=== PATIENT | female | born 1970 | race Caucasian/White ===

== ENCOUNTER 2022-10-06 00:05 | Emergency (ER) | payer BC, SELFPAY ==
[2022-10-06] VITALS (8 sets, daily range): BP systolic 134–196; BP diastolic 86–115; PULSE 80–98; RESP 16–18; TEMP 36.6–37.1; O2SAT 97–100; BMI 23.9
--- NOTE | 2022-10-06 00:28 | CT_ITS ---
INDICATION: flank pain -- bilat nephrostomy tube, leaking on right, tube elías EXAMINATION: CT ABDOMEN AND PELVIS WITHOUT CONTRAST - CT Abdomen And Pelvis W/O Contrast Injection TECHNIQUE: Helically acquired images were obtained of the abdomen and pelvis without oral or IV contrast. A radiation dose optimization technique was used for this scan. IV Contrast dosage and agent: None. Oral contrast: None. RADIATION DOSAGE (If Supplied By Facility): CTDIvol = ( 6.37 ) mGy, DLP = ( 312.15 ) mGycm COMPARISON: FINDINGS: LOWER CHEST: Lung bases are clear. No cardiomegaly or pericardial effusion. LIVER: Homogeneous. No focal mass. GALLBLADDER AND BILIARY TREE: No calcified gallstones. No gallbladder distension or wall edema. No intra- or extrahepatic biliary ductal dilation. PANCREAS: No focal cystic or solid mass. SPLEEN: Normal size without focal cystic or solid mass. ADRENAL GLANDS: No nodules. KIDNEYS AND URETERS: There is severe right hydronephrosis and hydroureter. Multiple stones are seen in the right kidney and the right ureter, the largest measures 9 mm there is a nephrostomy tube within a posterior calyx in the right kidney. Multiple stones are seen in the left kidney the largest measures 20 mm. There is a left nephrostomy tube in good position. There is no hydronephrosis noted on the left side.. PERITONEUM: No ascites or free air. No other fluid collection. BOWEL: No evidence of acute appendicitis. No stomach or bowel distension. No focal inflammatory change. LYMPH NODES: No enlarged mesenteric or retroperitoneal lymph nodes. VESSELS: Aorta is non-dilated. URINARY BLADDER: Unremarkable. REPRODUCTIVE ORGANS: No pelvic masses. ABDOMINAL WALL: No discrete abdominal or pelvic wall hernia. BONES: No lytic or blastic abnormality. CT/Abdomen/Pelvis without Cont IMPRESSION: There is severe right hydronephrosis and hydroureter. Multiple stones are seen in the right kidney the largest measures 9 mm there is a nephrostomy tube within a posterior calyx in the right kidney. Multiple stones are seen in the left kidney the largest measures 20 mm. There is a left nephrostomy tube in good position. There is no hydronephrosis noted on the left side. Electronically Signed: Timbo Kate MD at 1:35 EDT ,
--- NOTE | 2022-10-06 00:37 | EDS_ITS ---
HPI History of Present Illness Chief Complaint: Complaint Informant: patient Narrative Narrative: Presents with increasing leakage from right nephrostomy tube today. Bilateral nephrostomy tubes placed 6 weeks ago at [facility] followed by Dr. Horne. Patient reports history of cervical cancer 2012 with radiation therapy. History of kidney stones bilaterally. 6 weeks ago admitted to [facility] bilateral hydronephrosis with kidney stones. She had lithotripsy with no improvement, from her history reports had cystoscopy finding left-sided stenosis, right side was coiled, initial cystoscopy back in February. She is found to have severe hydro bilaterally 6 weeks ago, therefore nephrostomy tubes were placed by interventional radiology up at [facility]. She states the right side stopped draining 12 hours ago she had severe pain in the right side yesterday. Symptoms resolved today currently she is starting to urinate. No fevers or chills. Pain has subsided. Denies any allergies. Prior similar symptoms: No PFSH PFSH Medical History Cervical cancer Depression Kidney stones Nephrostomy tube failure with subsequent urine leak Smoker Home Medications NK 10/06/22 [History Last Taken Unknown] Allergy/AdvReac Type Severity Reaction Status Date / Time No Known Allergies Allergy Verified 10/06/22 00:08 Social History Smoking Status: Current some day smoker tobacco type: cigarettes ROS ROS ED Constitutional Constitutional ED: Denies chills, fever(s) or sweats Eyes Eyes: Denies change in vision ENT ENT ED: Denies dysphagia or sore throat Cardiovascular Cardiovascular: Denies chest pain, leg edema, palpitations or racing heartbeat Respiratory/Chest Respiratory/Chest: Denies cough, dyspnea or dyspnea on exertion Gastrointestinal Gastrointestinal: Denies abdominal pain, diarrhea, nausea or vomiting Genitourinary Genitourinary ED: Denies dysuria, hematuria or urinary frequency Musculoskeletal Musculoskeletal: Reports other Details: Transient right-sided flank pain, leaking nephrostomy tube on the right, no erythema around nephrostomy tubes bilaterally. No CVA tenderness. ; Denies back pain, extremity pain or neck pain Integumentary Denies rash or wounds Neurologic Neurologic: Denies headache(s), paresthesias or weakness EXAM Physical Exam Const Vital Signs: 10/06/22 00:06 10/06/22 01:08 10/06/22 02:07 Temperature 97.8 F 98.3 F 98.7 F Temperature Source Temporal Oral Oral Pulse Rate 98 87 80 Respiratory Rate 18 16 16 Blood Pressure 196/115 H 148/106 H 146/101 H Blood Pressure Mean 142 120 116 Pulse Ox 100 98 99 Oxygen Delivery Method Room Air Room Air Room Air 10/06/22 03:00 Temperature 98.7 F Temperature Source Oral Pulse Rate 88 Respiratory Rate 16 Blood Pressure 151/99 H Blood Pressure Mean 116 Pulse Ox 100 Oxygen Delivery Method Room Air MDM MDM MDM Narrative Medical decision making narrative: Interventions / MDM: Differential diagnosis: Displaced right nephrostomy tube, kidney stone, hydronephrosis, UTI Diagnosis considered but do not suspect: N/A My EKG interpretation: N/A Imaging independently reviewed and interpreted by myself: CT abdomen pelvis: Displaced nephrostomy tube right side currently right cortex with severe hydronephrosis, nephrolithiasis noted bilaterally. External documents reviewed: N/A Test considered but not ordered:N/A ED course: Nontoxic currently walking around the room. She is able to provide urine to be sent down culture sent from this. Labs showed white count 10.7. Patient's creatinine is 1.6 there is no old in the system to compare to. She reported there is previous slight renal insufficiency however was told likely from her obstructive process. CT scan confirms dislodged nephrostomy tube with severe hydronephrosis. Patient's urine noted UTI concerns leukocytes with greater than 100 WBCs and greater than 100 RBCs and 4+ bacteria. Culture is pending, also obtain urine culture from her left nephrostomy prior to antibiotics being started. IV Rocephin is started. With severe hydronephrosis complicated UTI with renal insufficiency do feel patient benefit from hospitalization and replacement of her nephrostomy tube on the right side. We do not have interventional radiology available on the weekends as it is Friday night. Did have my antitank assault gunner reach out to [facility] as it was placed there and her urologist is there, the report is that they also do not have interventional radiology available on the weekends. Therefore will look for tertiary centers to transfer. 0200: I spoke with transfer line at [facility] updated gave them information the patient with limitations from interventional radiology she will likely need replacement with IR. 0302: Received callback from transfer line, patient accepted to hospitalist service to Dr. Gaming. Re-evaluation: stable Disposition discussed with patient/family/significant other: Patient Case discussed with consulting clinician: Lesly mcgarry transfer line Lab Data Attestation: I reviewed the patient's lab results. Labs: Laboratory Results - last 24 hr 10/06/22 10/06/22 10/06/22 00:35 00:35 00:40 WBC 10.7 RBC 4.78 Hgb 13.6 Hct 44.2 MCV 92.5 MCH 28.5 MCHC 30.8 L RDW Std Deviation 49.9 H RDW Coeff of Veronica 14.6 Plt Count 228 MPV 10.1 Immature Gran % (Auto) 0.400 Neut % (Auto) 86.2 H Lymph % (Auto) 7.1 L Cooper % (Auto) 5.1 Eos % (Auto) 0.8 Baso % (Auto) 0.4 Absolute Neuts (auto) 9.3 H Absolute Lymphs (auto) 0.76 L Nucleated RBC % 0 Sodium 136 Potassium 3.4 L Chloride 106 Carbon Dioxide 25.0 Anion Gap 5 BUN 34 H Creatinine 1.61 H Estim Creat Clear Calc 40.65 Est GFR (MDRD) Af Amer 44 L Est GFR (MDRD) Non-Af 36 L BUN/Creatinine Ratio 21.1 H Glucose 171 H Calcium 9.4 Urine Color Yellow Urine Clarity Cloudy Urine pH 8.0 Ur Specific [place] 1.010 Urine Protein 100 H Urine Glucose (UA) Normal Urine Ketones Negative Urine Occult Blood 250 H Urine Nitrite Negative Urine Bilirubin Negative Urine Urobilinogen 1 H Ur Leukocyte Esterase 500 H Urine RBC > 100 SEEN Urine WBC >100 SEEN Ur Squamous Epith Cells 0 SEEN Urine Bacteria 4+ Urine Mucus 0 SEEN Radiography Diagnostic Testing: Clinical Impression(s) from Imaging Studies Abdomen/Pelvis CT 10/06/22 00:28 IMPRESSION: There is severe right hydronephrosis and hydroureter. Multiple stones are seen in the right kidney the largest measures 9 mm there is a nephrostomy tube within a posterior calyx in the right kidney. Multiple stones are seen in the left kidney the largest measures 20 mm. There is a left nephrostomy tube in good position. There is no hydronephrosis noted on the left side. Electronically Signed: Timbo Kate MD at 1:35 EDT , Discharge Plan Triage Chief Complaint: Complaint ED Provider: Hira Maciel Dx/Rx/DC Orders Clinical Impression: Hydronephrosis of right kidney, Nephrostomy tube displaced, Complicated urinary tract infection, Renal insufficiency Prescriptions: No Action NK Primary Care Provider: Bárbara Young Referrals: Bárbara Young, PA [Primary Care Provider] - Disposition Disposition: DC/Tx to Another Type of HCF
[2022-10-06 00:42] LABS: Mucous, Urine 0 SEEN /hpf (<or=2+); Squamous Epithelial Cells - UA 0 SEEN /hpf (5-10)
[2022-10-06 00:42] LABS: Absolute Lymphocyte Count 0.76 X10^3/uL (0.83-4.51); Absolute Neutrophil Count 9.3 X10^3/uL (2.0-7.7); Basophil# 0.04 X10^3/uL; Basophil% 0.4 % (0-1); Eosinophil# 0.09 X10^3/uL; Eosinophils% 0.8 % (0-5); Hematocrit 44.2 % (37-47); Hemoglobin 13.6 g/dL (12.0-15.0); Lymphocyte # 0.76 X10^3/ul (0.83-4.51); Lymphocyte % 7.1 % (19-41); Mean Corp Hgb Conc 30.8 g/dL (32-36); Mean Corpuscular Hgb 28.5 pg (27.0-32.0); Mean Corpuscular Volume 92.5 fL (81-99); Mean Platelet Vol. 10.1 fl (6.2-12.0); Monocyte# 0.55 X10^3/uL; Monocyte% 5.1 % (0-10); NRBC Flagged by Analyzer 0 % (0-5); Neutrophil # 9.26 X10^3/uL (2.7-7.7); Neutrophil % 86.2 % (47-70); Platelet Count 228 K/mm3 (150-450); RBC Distribution Width CV 14.6 % (11.6-14.6); RBC Distribution Width SD 49.9 fl (35.1-43.9); Red Blood Count 4.78 M/mm3 (4.2-5.4); White Blood Count 10.7 K/mm3 (4.4-11.0)
[2022-10-06 00:44] LABS: Color, Urine Yellow (Yellow); Glucose, Dipstick Normal (Normal); Ketone-Dipstick Negative (Negative); Leukocyte Esterase-Dipstick 500 /ul (Negative); Nitrite-Dipstick Negative (Negative); Occult Blood-Urine 250 /ul (Negative); Protein-Dipstick 100 mg/dl (Negative); Urine Bilirubin Dipstick Negative (Negative); Urine Clarity Cloudy (Clear); Urine Urobilinogen 1 mg/dl (Normal)
[2022-10-06 00:49] LABS: Bacteria 4+ /hpf (None Seen); Red Blood Cells-Urine > 100 SEEN /hpf (0-5); White Blood Cells >100 SEEN /hpf (0-5)
[2022-10-06 00:57] LABS: Anion Gap 5 (5-15); BUN 34 mg/dL (7-18); BUN/Creat Ratio 21.1 RATIO (10-20); Calcium,Total 9.4 mg/dL (8.5-10.1); Chloride 106 mmol/L (98-107); Creatinine, Serum 1.61 mg/dL (0.55-1.02); EST Glomerular Filtration Rate 36 mL/min (>60); Est Glom Filt Rate - Afr Amer 44 mL/min (>60); Estimated Creatinine Clearance 40.65 ml/min; Glucose 171 mg/dL (74-106); Potassium 3.4 mmol/L (3.5-5.1); Sodium Level 136 mmol/L (136-145)
[2022-10-06] MEDS: Ceftriaxone 1 GM/50 ML BAG IV (01:16)
--- NOTE | 2022-10-06 03:04 | NURSING ---
RECEIVED ACCEPTANCE FROM [facility] - CALLED PHYSICIANS TO SET UP TRANSPORT ETA IS [phone]
--- NOTE | 2022-10-06 05:01 | NURSING ---
Report called to [facility] report given to Flakita PRATER.
== END 2022-10-06 08:22 | disposition other institution (70) ==
PROVIDERS: Emergency Provider Emergency Medicine; PCP Physician Assistant; Visit Provider Emergency Medicine
DX: N13.6 Pyonephrosis (principal); T83.022A Displacement of nephrostomy catheter, initial encounter; F17.210 Nicotine dependence, cigarettes, uncomplicated; X58.XXXA Exposure to other specified factors, initial encounter
CPT/HCPCS: 74176; 80048; 81001; 85025; 87077; 87086; 87088; 87186; 96365; 99284; J7050

== ENCOUNTER 2023-11-07 14:40 | Emergency (ER) | payer BC, SELFPAY ==
[2023-11-07 14:42] VITALS: BP 145/97; PULSE 90; RESP 18; TEMP 36.4; O2SAT 100; BMI 22.8
--- NOTE | 2023-11-07 15:05 | CT_ITS ---
EXAM: CT HEAD WITHOUT INTRAVENOUS CONTRAST CLINICAL INDICATION: confusion TECHNIQUE: Multiple axial images were obtained of the head without intravenous contrast. This CT exam was performed using one or more of the following dose reduction techniques: automated exposure control, adjustment of the mA and/or kV according to patient size, and/or use of iterative reconstruction technique. COMPARISON: No relevant prior studies available. FINDINGS: BRAIN AND EXTRA-AXIAL SPACES: Normal. Normal brain attenuation. No intra- or extra-axial hemorrhage. No acute infarct. No intracranial mass or mass effect. There is preservation of the farah/white matter interface. Posterior fossa structures are unremarkable. Ventricles are appropriate for age. No hydrocephalus. Basal cisterns are patent. BONES/JOINTS: Normal calvarium. SINUSES: No acute sinusitis. MASTOID AIR CELLS: Normal. Clear. CT/Brain/Head without Contrast IMPRESSION: Normal CT brain without intravenous contrast. Electronically Signed: Nicola Bonner MD at 16:27 EDT ,
--- NOTE | 2023-11-07 15:05 | EKG12_ITS ---
Test Reason : NEURO/CONFUSION Blood Pressure : / mmHG Vent. Rate : 067 BPM Atrial Rate : 067 BPM P-R Int : 134 ms QRS Dur : 082 ms QT Int : 424 ms P-R-T Axes : 058 006 038 degrees QTc Int : 448 ms Normal sinus rhythm Possible Left atrial enlargement Borderline ECG Confirmed by Alejo Hernández ([id number]), editor trade journal REESE MEJÍA ([id number]) on 11/10/2023 8:04:18 AM Referred By: Confirmed By:Alejo Hernández
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
[2023-11-07] MEDS: 0.9% Normal Saline (1000mL) 1,000 ML 999 ML IV (15:23)
[2023-11-07 15:40] LABS: Absolute Neutrophil Count 6.5 X10^3/uL (2.0-7.7); Basophil# 0.06 X10^3/uL; Basophil% 0.7 % (0-1); Eosinophil# 0.14 X10^3/uL; Eosinophils% 1.5 % (0-5); Hematocrit 38.9 % (37-47); Hemoglobin 11.6 g/dL (12.0-15.0); Lymphocyte % 19.7 % (19-41); Mean Corp Hgb Conc 29.8 g/dL (32-36); Mean Corpuscular Volume 83.8 fL (81-99); Mean Platelet Vol. 10.2 fl (6.2-12.0); Monocyte# 0.64 X10^3/uL; NRBC Flagged by Analyzer 0 % (0-5); Neutrophil # 6.48 X10^3/uL (2.7-7.7); Neutrophil % 70.8 % (47-70); Platelet Count 302 K/mm3 (150-450); RBC Distribution Width CV 15.8 % (11.6-14.6); Red Blood Count 4.64 M/mm3 (4.2-5.4); White Blood Count 9.2 K/mm3 (4.4-11.0)
[2023-11-07 15:41] VITALS: BP 133/70; PULSE 69; RESP 16; O2SAT 99
[2023-11-07 16:06] LABS: Mucous, Urine 0 SEEN /hpf (<or=2+)
[2023-11-07 16:17] LABS: ALB/GLOB Ratio 0.8 RATIO (0.9-2.4); AST(SGOT) 15 U/L (15-37); Alanine Aminotransfer ALT/SGPT 20 U/L (13-56); Albumin, Serum 3.5 g/dL (3.2-5.0); Alkaline Phosphatase 112 U/L (45-117); Anion Gap 7 (5-15); BUN 20 mg/dL (7-18); BUN/Creat Ratio 20.1 RATIO (10-20); Calcium,Total 9.6 mg/dL (8.5-10.1); Chloride 108 mmol/L (98-107); EST Glomerular Filtration Rate 62 mL/min (>60); Est Glom Filt Rate - Afr Amer 75 mL/min (>60); Estimated Creatinine Clearance 64.72 ml/min; Globulin 4.5 g/dL (2.2-4.2); Glucose 84 mg/dL (74-106); Lipase 45 U/L (13-75); Potassium 3.5 mmol/L (3.5-5.1); Sodium Level 139 mmol/L (136-145)
[2023-11-07 16:38] LABS: Color, Urine Yellow (Yellow); Glucose, Dipstick Normal (Normal); Ketone-Dipstick Negative (Negative); Leukocyte Esterase-Dipstick 500 /ul (Negative); Nitrite-Dipstick Negative (Negative); Occult Blood-Urine 250 /ul (Negative); Protein-Dipstick 100 mg/dl (Negative); Urine Bilirubin Dipstick Negative (Negative); Urine Clarity Cloudy (Clear); Urine Urobilinogen Normal (Normal)
[2023-11-07 16:47] LABS: Amphetamine Urine VISTA NEGATIVE (<1000 ng/mL); Barbiturate Urine VISTA NEGATIVE (< 200 ng/mL); Benzodiazepine Urine VISTA NEGATIVE (< 200 ng/mL); Cocaine Urine VISTA NEGATIVE (< 300 ng/mL); Ecstacy Urine VISTA NEGATIVE (< 500 ng/mL); Methadone Urine VISTA NEGATIVE (< 300 ng/mL); PCP Urine VISTA NEGATIVE (< 25 ng/mL); THC Urine VISTA NEGATIVE (< 50 ng/mL); Vista UDS pH Range 5
[2023-11-07 16:51] LABS: Red Blood Cells-Urine 50-100 SEEN /hpf (0-5); White Blood Cells >100 SEEN /hpf (0-5)
[2023-11-07 16:52] LABS: Bacteria 2+ /hpf (None Seen); Squamous Epithelial Cells - UA 5-10 SEEN /hpf (5-10)
[2023-11-07 16:54] LABS: Calcium Oxalate Crystals Ur 1+ /hpf (<or=2+)
[2023-11-07 17:00] VITALS: BP 128/86; PULSE 67; RESP 12; O2SAT 98
[2023-11-07] MEDS: Nitrofurantoin Macrocrystals 100 MG Capsule PO (17:42)
[2023-11-07 17:43] VITALS: BP 119/85; PULSE 64; RESP 18; TEMP 36.9; O2SAT 100
== END 2023-11-07 17:45 | disposition home or self-care (01) ==
PROVIDERS: Nurse Practitioner; Emergency Provider Emergency Medicine; PCP Physician Assistant; Visit Provider Emergency Medicine
DX: N39.0 Urinary tract infection, site not specified (principal); R41.82 Altered mental status, unspecified; F17.210 Nicotine dependence, cigarettes, uncomplicated
CPT/HCPCS: 70450; 80053; 80307; 80320; 81001; 83690; 85025; 87086; 87088; 93005; 99285; G0480